=== PATIENT | female | born 1960 | race Caucasian/White ===

== ENCOUNTER 2018-01-28 10:08 | Emergency (ER) | payer OTHER ==
[~2018-01-28] VITALS: Ht 154.9 cm; Wt 77.6 kg
[2018-01-28 10:14] VITALS: BP 211/110; PULSE 100; RESP 16; TEMP 98.4; O2SAT 97
[2018-01-28] MEDS ORDERED: LORazepam 2 MG/ML VIAL IV PUSH SCH (10:15)
[2018-01-28] MEDS ORDERED: ASPIRIN 81 MG CHEW TAB PO ONE (10:15)
[2018-01-28] MEDS ORDERED: SODIUM CHLORIDE 0.9% FLUSH 10 ML FLUSH IVF PRN (10:15)
[2018-01-28] MEDS ORDERED: ASPI1TAB57 PO (10:22)
[2018-01-28] MEDS ORDERED: CIPR-9 PO (10:28)
[2018-01-28] MEDS ORDERED: TETANUS/DIPHTHERIA TOXOID ADULT 0.5 ML VIAL IM ONE (10:30)
--- NOTE | 2018-01-28 10:35 | PD ---
HPI . Animal bite Chief Complaint: Bite or Sting Time Seen by Provider: 10:12 Travel History International Travel<30 days: No Contact w/Intl Traveler<30days: No Traveled to known affect area: No History of Present Illness HPI This patient was inadvertently bitten by her pet turtle this morning. She does not know the date of her last tetanus shot. Symptoms are mild. PFSH Past Medical History Medical History: Denies Significant Hx Diminished Hearing: No Tetanus Vaccination: > 5 Years Influenza Vaccination: No Past Surgical History Surgical History: No Previous Surgery Social History Alcohol Use: Yes (wine daily ) Tobacco Use: No Substance Use: No Allergies-Medications (Allergen,Severity, Reaction): Coded Allergies: No Known Allergies (Unverified , 01/28/18) Reported Meds & Prescriptions Reported Meds & Active Scripts Active Cipro (Ciprofloxacin HCl) 500 Mg Tab 500 Mg PO BID 5 Days Reported Aspirin 81 (Aspirin) 81 Mg Tabdr 81 Mg PO DAILY Review of Systems Except as stated in HPI: all other systems reviewed are Neg Physical Exam Narrative GENERAL: Awake and alert and in no acute distress. SKIN: Warm and dry. Small wound on the hyperthenar aspect of the left hand. Distally neurovascularly intact. HEAD: Normocephalic/atraumatic. EYES: Pupils are equal. Extraocular movements are intact. NECK: Normal range of motion. RESPIRATORY: Nonlabored respirations. MUSCULOSKELETAL: Atraumatic. NEUROLOGICAL: Nonfocal. PSYCHIATRIC: Appropriate mood and affect. Data Data Last Documented VS Vital Signs Date Time Temp Pulse Resp B/P (MAP) Pulse Ox O2 Delivery O2 Flow Rate FiO2 01/28/18 10:14 98.4 100 16 211/110 (143) 97 Orders Orders Electrocardiogram (01/28/18 10:15) Aspirin Chew (Aspirin Chew) (01/28/18 10:15) Sodium Chloride 0.9% Flush (Ns Flush) (01/28/18 10:15) Lorazepam Inj (Ativan Inj) (01/28/18 10:15) Tetanus/Diphtheria Tox Adult (Tetanus/Di (01/28/18 10:30) Ed Discharge Order (01/28/18 10:30) MDM Medical Decision Making Medical Screen Exam Complete: Yes Emergency Medical Condition: Yes Differential Diagnosis Differential diagnosis of animal bite includes but is not limited to wound, wound infection, retained foreign body, open fracture, sepsis, rabies. Narrative Course This patient presents status post a bite by her pet turtle. I queried up-to- date. Turtles are at risk of transmitting salmonella. I have updated her tetanus and have given her prescription for Cipro for 5 days. Diagnosis Primary Impression: Turtle bite Qualified Codes: W59.21XA - Bitten by turtle, initial encounter Patient Instructions: General Instructions Departure Forms: Tests/Procedures Scripts Ciprofloxacin (Cipro) 500 Mg Tab 500 MG PO BID for Infection for 5 Days, #10 TAB 0 Refills Prov: Kelly Fallon MD 01/28/18 Disposition: DISCHARGE HOME Condition: Stable Kelly Fallon MD Jan 28, 2018 10:35
== END 2018-01-28 11:01 | disposition home or self-care (01) ==
LOC: PHEFT 10:08
DX: S60.572A Other superficial bite of hand of left hand, initial encounter (principal); W59.21XA Bitten by turtle, initial encounter; Z23 Encounter for immunization; Z79.82 Long term (current) use of aspirin; Z79.899 Other long term (current) drug therapy
CPT/HCPCS: 90471; 90714